=== PATIENT | female | born 1960 | race Caucasian/White ===

== ENCOUNTER 2016-09-03 16:50 | Emergency (ER) | payer BC ==
[~2016-09-03] VITALS: Ht 157.5 cm; Wt 63.5 kg
[2016-09-03 16:50] VITALS: BP 135/73; PULSE 76; RESP 18; TEMP 97.1; O2SAT 98
[~2016-09-03 16:50] MED LIST: BACL20TA PO; DIAZ-60 PO; DOX; ESCI10TA PO; GABA-531 PO; GLU500 PO; IBUP-1480 PO; ISOS30TA6 PO; METH750T3 GT; METO25TA3 PO; MVI; PRAV20TA PO; TEMA30CA5 PO; TRAM50TA92 PO
--- NOTE | 2016-09-03 17:00 | NUR ---
Patient to [facility] for evaluation. Side rails up. Report given to LUI Vega.
--- NOTE | 2016-09-03 17:00 | NUR ---
ER in [facility] examining patient.
--- NOTE | 2016-09-03 17:02 | NUR ---
Pt came into the ER in stable condition. Pt was sent here by PMD for further evaluation. Pt c/o bloating and abd pain 08/19. -n/v/d -sob -chest pain. No acute distress noted at this time, will continue to monitor
[2016-09-03 17:48] LABS: CALCIUM 8.9 mg/dL (8.4-11.0); CHLORIDE 107 mmol/L (98-107); CREATININE 0.95 mg/dL (0.55-1.30); GLUCOSE 83 mg/dL (70-99); POTASSIUM 3.8 mmol/L (3.5-5.1); SODIUM SERUM 139 mmol/L (136-145); UREA NITROGEN, BLOOD 20 mg/dL (8-21)
[2016-09-03 17:51] LABS: INR 0.9 (0.8-1.2); PROTHROMBIN TIME 10.2 SECS (9.5-12.5)
[2016-09-03 17:53] LABS: ALANINE AMINOTRANSFERASE 65 U/L (12-78); ALBUMIN 3.7 g/dL (3.4-4.8); ASPARTATE AMINOTRANSFERASE 28 U/L (10-37); LIPASE 89 U/L (73-393); TOTAL BILIRUBIN 0.5 mg/dL (0.0-1.0); TOTAL PROTEIN, SERUM 7.5 g/dL (6.4-8.3)
[2016-09-03 17:54] VITALS: BP 135/73; PULSE 76; RESP 18; TEMP 97.1; O2SAT 98
[2016-09-03 17:54] LABS: ANION GAP < 3 (5-15); GFR AFRICAN AMERICAN 78 mL/min (>90)
--- NOTE | 2016-09-03 17:54 | NUR ---
Patient given written and verbal discharge instructions and verbalizes understanding. ER MD Reyna discussed with patient the results and treatment provided. Patient in stable condition. ID arm band removed. Rx of Metronidazole and Cipro given. Patient educated on pain management and to follow up with PMD. Pain Scale 0/10. Opportunity for questions provided and answered.
[2016-09-03 18:07] LABS: BILIRUBIN,URINE NEGATIVE (NEGATIVE); BLOOD, URINE NEGATIVE (NEGATIVE); CLARITY/URINE CLOUDY (CLEAR); COLOR,URINE YELLOW (YELLOW); GLUCOSE,URINE NEGATIVE (NEGATIVE); KETONES,URINE NEGATIVE (NEGATIVE); LEUKOCYTE ESTERASE ,URINE NEGATIVE (NEGATIVE); NITRITE, URINE NEGATIVE (NEGATIVE); PH,URINE 5.5 (5.0-8.0); PROTEIN URINE NEGATIVE (NEGATIVE); UROBILINOGEN,URINE 0.2 (0.2-1.0)
[2016-09-03 18:09] LABS: EOSINOPHILS # (AUTO) 0.1 K/uL (0.0-0.4); EOSINOPHILS % (AUTO) 1.3 % (0.0-4.0); MONOCYTES # (AUTO) 0.7 K/uL (0.0-1.0)
[2016-09-03 18:11] LABS: BASOPHILS % (AUTO) 0.3 % (0.0-2.0); LYMPHOCYTES # (AUTO) 1.3 K/uL (1.0-5.5); LYMPHOCYTES % (AUTO) 17.8 % (20.5-51.5); MEAN CORPUSCULAR HEMOGLOBIN 30 pg (27-31); MEAN CORPUSCULAR HGB CONC 34 % (32-36); MEAN CORPUSCULAR VOLUME 88 fL (79.0-98.0); MONOCYTES % (AUTO) 8.8 % (1.7-9.3); NEUTROPHILS # (AUTO) 5.4 K/uL (1.8-7.7); NEUTROPHILS % (AUTO) 71.8 % (40.0-70.0); PLATELET COUNT (AUTO) 229 K/uL (130-430); RED BLOOD CELL COUNT(AUTO) 4.66 MIL/uL (4.2-6.2); RED CELL DISTRIBUTION WIDTH 11.9 % (9.0-15.0); WHITE BLOOD COUNT (AUTO) 7.5 K/uL (4.8-10.8)
[2016-09-03 18:38] LABS: BACTERIA,URINE FEW /HPF (None Seen); RBC,URINE NONE SEEN /HPF (0-3); URIC ACID CRYSTALS,URINE 0-10 /HPF (None Seen); URINE AMORPHOUS URATE 4+ /HPF (None Seen); WBC,URINE 0-3 /HPF (0-3)
[2016-09-03 18:39] LABS: MUCUS,URINE None Seen /LPF (None Seen)
== END 2016-09-03 17:54 | disposition home or self-care (01) ==
LOC: SED 16:50
DX: K57.92 Diverticulitis of intestine, part unspecified, without perforation or abscess without bleeding (principal); Z88.0 Allergy status to penicillin
CPT/HCPCS: 36415; 80053; 81000-TC; 83690-TC; 85025; 85610-TC; 85730-TC; 99285

== ENCOUNTER 2020-12-05 11:59 | Emergency (ER) | payer BC ==
[~2020-12-05] VITALS: Ht 157.5 cm; Wt 62.1 kg
[~2020-12-05 11:59] MED LIST changes: -DIAZ-60 PO; +DIAZ5TAB PO; -IBUP-1480 PO; +IBUP-1970 PO; -ISOS30TA6 PO; +ISOS30TA85 PO; +METH-634 GT; -METH750T3 GT
[2020-12-05 12:30] VITALS: BP_SYST 125
[2020-12-05 13:53] LABS: BASOPHILS # (AUTO) 0.1 K/uL (0.0-0.2); BASOPHILS % (AUTO) 0.7 % (0.0-2.0); EOSINOPHILS # (AUTO) 0.1 K/uL (0.0-0.4); EOSINOPHILS % (AUTO) 1.1 % (0.0-4.0); HEMATOCRIT 42.3 % (36-48); HEMOGLOBIN 14.4 g/dL (12.0-16.0); LYMPHOCYTES # (AUTO) 1.7 K/uL (1.0-5.5); LYMPHOCYTES % (AUTO) 20.8 % (20.5-51.5); MEAN CORPUSCULAR HEMOGLOBIN 31 pg (27-31); MEAN CORPUSCULAR HGB CONC 34 % (32-36); MEAN CORPUSCULAR VOLUME 91 fL (79.0-98.0); MONOCYTES # (AUTO) 0.8 K/uL (0.0-1.0); MONOCYTES % (AUTO) 9.3 % (1.7-9.3); NEUTROPHILS # (AUTO) 5.6 K/uL (1.8-7.7); NEUTROPHILS % (AUTO) 68.1 % (40.0-70.0); PLATELET COUNT (AUTO) 245 K/uL (130-430); RED BLOOD CELL COUNT(AUTO) 4.64 MIL/uL (4.2-6.2); RED CELL DISTRIBUTION WIDTH 12.7 % (9.0-15.0); WHITE BLOOD COUNT (AUTO) 8.3 K/uL (4.8-10.8)
[2020-12-05 14:04] LABS: CALCIUM 9.1 mg/dL (8.4-11.0); CREATININE 0.8 mg/dL (0.55-1.30); POTASSIUM 4.5 mmol/L (3.5-5.1)
[2020-12-05 15:20] LABS: BILIRUBIN,URINE NEGATIVE (NEGATIVE); BLOOD, URINE NEGATIVE (NEGATIVE); CLARITY/URINE CLEAR (CLEAR); COLOR,URINE YELLOW (YELLOW); GLUCOSE,URINE NEGATIVE (NEGATIVE); KETONES,URINE NEGATIVE (NEGATIVE); LEUKOCYTE ESTERASE ,URINE TRACE (NEGATIVE); NITRITE, URINE NEGATIVE (NEGATIVE); PROTEIN URINE NEGATIVE (NEGATIVE); UROBILINOGEN,URINE 0.2 (0.2-1.0)
[2020-12-05] MEDS ORDERED: EMLA TP (15:21)
[2020-12-05 15:42] VITALS: BP_SYST 125
[2020-12-05 16:38] LABS: BACTERIA,URINE FEW /HPF (None Seen); RBC,URINE 0-3 /HPF (0-3)
[2020-12-05 16:39] LABS: MUCUS,URINE None Seen /LPF (None Seen)
== END 2020-12-05 15:42 | disposition home or self-care (01) ==
LOC: SED 11:59
DX: T81.31XA Disruption of external operation (surgical) wound, not elsewhere classified, initial encounter (principal); I10 Essential (primary) hypertension; Z88.0 Allergy status to penicillin; Z79.899 Other long term (current) drug therapy; Z79.84 Long term (current) use of oral hypoglycemic drugs
CPT/HCPCS: 36415; 80048; 81000; 85025; 87086; 99283